=== PATIENT | male | born 1955 | race Caucasian/White ===

== ENCOUNTER 2016-08-07 08:12 | Day surgery (SDC) | payer BC ==
[2016-08-04 15:56] VITALS: BMI 28.6
[~2016-08-07 08:12] MED LIST: LACTATED RINGERS 1,000 ML IV SCH
[2016-08-07 08:33] VITALS: TEMP 98.2
[2016-08-07] MEDS ORDERED: LIDOCAINE 1% 20 ML VIAL (10MG/ML) FOR IV START INTRADERMA ONE (08:44)
[2016-08-07] MEDS ORDERED: MIDAZOLAM 2 MG/2 ML VIAL ONE (08:58)
[2016-08-07] MEDS ORDERED: PROPOFOL 10 MG/ML 20 ML VIAL IV ONE (08:58)
[2016-08-07] MEDS ORDERED: fentaNYL (PF) 50 MCG/ML 2 ML AMP ONE (08:58)
[2016-08-07] MEDS ORDERED: IV FLUID CONTINUATION 650 ML IV ONE (09:21)
--- NOTE | 2016-08-07 09:22 | P.PCN ---
Date of Procedure: 08/07/16 Procedure(s) Performed: BRIEF HISTORY: Patient is a 60-year-old pleasant white male, scheduled for an elective colonoscopy as a part of screening for colon neoplasia. PROCEDURE PERFORMED: Colonoscopy with snare polypectomy. PREOPERATIVE DIAGNOSIS: Screening for colon cancer. IV sedation per Anesthesia. PROCEDURE: After informed consent was obtained, the patient, was brought into the endoscopy unit. IV conscious sedation was administered by Anesthesia under continuous monitoring. Initially the Olympus CF-160 flexible video colonoscope was then inserted in the rectum, gradually advanced into the cecum without any difficulty. Careful examination was performed as the scope was gradually being withdrawn. Ileocecal valve and the appendiceal orifice were visualized and appeared normal. Prep was excellent. In the base of the cecum there was a 1.5 cm broad-based polyp removed by snare polypectomy. On the ileocecal valve there was a 1 segment of polyp removed by snare polypectomy. Mucosa of the cecum, appeared normal. In the ascending colon there were 5 polyps measuring between 5 mm to 1 cm in size all of which were removed by snare polypectomy. The rest of the ascending colon, transverse colon, appeared normal. In the descending colon there was a 1 cm polyp removed by snare polypectomy in the sigmoid colon there was a 1 cm polyp removed by snare polypectomy and in the rectum there were 5 mm 2 polyps removed by snare polypectomy. Rest of the descending colon, sigmoid colon, and rectum appeared normal. Retroflexion was performed in the rectum and no lesions were seen. The patient tolerated the procedure well. IMPRESSION: 1.5 and admitted broad-based cecal polyp status post polypectomy 1 cm ileocecal valve polyp serous post-polypectomy 5 polyps in the ascending colon measuring between 5 mm to 1 m incisors post- polypectomy 1 cm in the setting colon polyp status post polypectomy 1 cm sigmoid colon polyp serous was snare polypectomy 5 mm 2 rectal polyps status post polypectomy RECOMMENDATIONS: Findings of this examination were discussed with the patient as well as his family. He was advised to follow with the biopsy results. If the biopsy shows a tubular adenoma he can have a repeat colonoscopy in 3 years.
[2016-08-07 10:02] VITALS: BP 114/78; PULSE 74; RESP 18
== END 2016-08-07 09:58 | disposition home or self-care (01) ==
LOC: ORWHC2ENDO 08:12
PROVIDERS: ATTEND Internal Medicine Gastroenterology
DX: Z12.11 Encounter for screening for malignant neoplasm of colon (principal); D12.2 Benign neoplasm of ascending colon; D12.0 Benign neoplasm of cecum; D12.4 Benign neoplasm of descending colon; D12.5 Benign neoplasm of sigmoid colon; K62.1 Rectal polyp; I25.10 Atherosclerotic heart disease of native coronary artery without angina pectoris; Z95.5 Presence of coronary angioplasty implant and graft; I25.2 Old myocardial infarction; Z79.82 Long term (current) use of aspirin; Z79.899 Other long term (current) drug therapy; Z87.891 Personal history of nicotine dependence
CPT/HCPCS: 88305; 45385; J2250; J3010; J2704

== ENCOUNTER → 2018-02-02 | Outpatient (CLI) | payer BC ==
--- NOTE | 2018-02-02 10:11 | CTL ---
EXAMINATION TYPE: CT Low Dose Lung DATE OF EXAM ORDERED: 02/02/2018 COMPARISON: None HISTORY: . Low Dose CT Lung Screening CT DLP: [address] CTDI: 1.53 mGy IV CONTRAST USED: None. SCREENING VISIT: First visit COMPARISON: None. TECHNIQUE: Low dose computed tomography scan was performed through the chest at 1 millimeter thick se ctions and reconstructed images in the coronal plane at [address] DIAGNOSTIC QUALITY: Satisfactory FINDINGS: LUNG NODULES: Not presentLeft lung: no nodules identified.Right lung: no nodules identified. LUNGS: COPD: Severity: None Fibrosis: Severity:None Lymph nodes: None Other findings: None RIGHT PLEURAL SPACE: Effusion: None Calcification: None Thickening: None Pneumothorax: None LEFT PLEURAL SPACE: Effusion: None Calcification: None Thickening: None Pneumothorax: None HEART: Heart Size: Mildly enlarged Coronary calcification: Mild Pericardial effusion: None OTHER FINDINGS: Upper abdomen: No significant abnormality Bony thorax: Degenerative changes Supraclavicular region: No significant abnormalityOther: No significant abnormalityI IMPRESSION: 1. No distinct nodule appreciated. FOLLOW UP CT CHEST RECOMMENDATION: Follow-up screening in one year CT LUNG RAD: Negative LUNG RAD CATEGORY
== END | disposition home or self-care (01) ==
LOC: RADCTMAIN 09:18
PROVIDERS: ATTEND Internal Medicine
DX: Z12.2 Encounter for screening for malignant neoplasm of respiratory organs (principal); F17.200 Nicotine dependence, unspecified, uncomplicated

== ENCOUNTER 2020-11-07 11:30 | Emergency (ER) | payer BC, MEDICARE ==
[2020-11-07 11:54] VITALS: BP 141/82; PULSE 65; RESP 20; TEMP 98
[2020-11-07] MEDS ORDERED: KETOROLAC 15 MG/ML 1 ML VIAL IVP STA (12:27)
[2020-11-07] MEDS ORDERED: ONDANSETRON 4 MG/2 ML VIAL IVP STA (12:28)
--- NOTE | 2020-11-07 12:31 | ED ---
Abdominal Pain HPI - General Chief Complaint: Abdominal Pain Stated Complaint: Kidney Stones Time Seen by Provider: 11/07/20 12:19 Source: patient Mode of arrival: ambulatory Limitations: no limitations - History of Present Illness Initial Comments: This is a 65-year-old male with a history of [place] about 7 years ago also history kidney stones who states he had the onset 4 days ago of right-sided flank pain and he better not moving states normally he has a kidney stone to pass her right away within 1 or 2 days has not moved at all. Nausea decreased oral intake and dark urine is reported. The pain he states is 15/10 in severity complaints at this time no fevers MD Complaint: flank pain - Related Data Home Medications Medication Instructions Recorded Confirmed Aspirin EC [Ecotrin] 325 mg PO DAILY 07/29/15 11/07/20 Nitroglycerin Sl Tabs [Nitrostat] 0.4 mg SUBLINGUAL Q5M PRN 07/29/15 11/07/20 Atorvastatin [Lipitor] 40 mg PO DAILY 08/04/16 11/07/20 Acetaminophen Tab [Tylenol Tab] 1,000 mg PO Q6HR PRN 11/07/20 11/07/20 Previous Rx's Medication Instructions Recorded Ketorolac [Toradol] 10 mg PO Q6HR #20 tab 11/07/20 Tamsulosin HCl [Flomax] 0.4 mg PO DAILY #7 capsule 11/07/20 Allergies Allergy/AdvReac Type Severity Reaction Status Date / Time marijuana Allergy Anaphylaxis Verified 11/07/20 13:25 wool Allergy Rash/Hives Verified 11/07/20 13:25 Review of Systems ROS Statement: Those systems with pertinent positive or pertinent negative responses have been documented in the HPI. ROS Other: All systems not noted in ROS Statement are negative. Past Medical History Past Medical History: Chest Pain / Angina, GERD/Reflux, Hyperlipidemia, Myocardial Infarction ([place]), Osteoarthritis ([place]) Additional Past Medical History / Comment(s): LT WRIST FX CHILD, 7 RIB FX AGE 26 Last Myocardial Infarction Date:: 2010 History of Any Multi-Drug Resistant Organisms: None Reported Past Surgical History: Heart Catheterization With Stent, Hernia Repair Additional Past Surgical History / Comment(s): DONNELL INGUINAL HERNIA REPAIR Past Anesthesia/Blood Transfusion Reactions: No Reported Reaction Date of Last Stent Placement:: 2010 Past Psychological History: Depression Smoking Status: Never smoker Past Alcohol Use History: Occasional Past Drug Use History: None Reported - Past Family History Mother Family Medical History: No Reported History Additional Family Medical History / Comment(s): MOM IS HEALTHY, HAD 10 KIDS.STILL WORKS AT [employer] AT AGE 82 Father Family Medical History: Myocardial Infarction ([place]) Additional Family Medical History / Comment(s): HEAVY SMOKER/DRINKER General Exam - General Exam Comments Initial Comments: This is a well-developed well-nourished awake alert oriented 3 male Limitations: no limitations General appearance: alert, anxious, in distress Head exam: Present: atraumatic, normocephalic, normal inspection Eye exam: Present: normal appearance, PERRL, EOMI. Absent: scleral icterus, c onjunctival injection, periorbital swelling ENT exam: Present: normal exam, mucous membranes moist Neck exam: Present: normal inspection. Absent: tenderness, meningismus, lymphadenopathy Respiratory exam: Present: normal lung sounds bilaterally. Absent: respiratory distress, wheezes, rales, rhonchi, stridor Cardiovascular Exam: Present: regular rate, normal rhythm, normal heart sounds. Absent: systolic murmur, diastolic murmur, rubs, gallop, clicks GI/Abdominal exam: Present: soft, tenderness (Mild tenderness palpation of the right side mid abdomen), normal bowel sounds. Absent: distended, guarding, rebound, rigid Rectal exam: Present: deferred ( no guarding rebound masses or bruits) Extremities exam: Present: normal inspection, full ROM, normal capillary refill. Absent: tenderness, pedal edema, joint swelling, calf tenderness Back exam: Present: normal inspection. Absent: CVA tenderness (R), CVA tenderness (L) Neurological exam: Present: alert, oriented X3, CN II-XII intact Psychiatric exam: Present: normal affect, normal mood Skin exam: Present: warm, dry, intact, normal color. Absent: rash Course Vital Signs 11/07/20 11:51 Temperature 98.0 F Pulse Rate 65 Respiratory 20 Rate Blood Pressure 141/82 O2 Sat by Pulse 98 Oximetry Medical Decision Making - Medical Decision Making Patient did get complete pain relief from the Toradol was given. He feels much improved we a long discussion regarding the findings he is currently in satisfactory condition for discharge we did discuss kidney function fluids he'll be discharged with appropriate pain medication. He is a follow-up with his doctor return if any problems he has previously passed much larger stones. - Lab Data Result diagrams: 11/07/20 12:36 11/07/20 12:36 Lab Results 11/07/20 11/07/20 11/07/20 Range/Units 12:36 12:36 12:36 WBC 11.5 H (3.8-10.6) k/uL RBC 4.93 (4.30-5.90) m/uL Hgb 15.2 (13.0-17.5) gm/dL Hct 46.2 (39.0-53.0) % MCV 93.7 (80.0-100.0) fL MCH 30.7 (25.0-35.0) pg MCHC 32.8 (31.0-37.0) g/dL RDW 14.0 (11.5-15.5) % Plt Count 198 (150-450) k/uL MPV 7.5 Neutrophils % 82 % Lymphocytes % 8 % Monocytes % 7 % Eosinophils % 0 % Basophils % 0 % Neutrophils # 9.4 H (1.3-7.7) k/uL Lymphocytes # 1.0 (1.0-4.8) k/uL Monocytes # 0.8 (0-1.0) k/uL Eosinophils # 0.0 (0-0.7) k/uL Basophils # 0.0 (0-0.2) k/uL Sodium 135 L (137-145) mmol/L Potassium 4.1 (3.5-5.1) mmol/L Chloride 101 (98-107) mmol/L Carbon Dioxide 26 (22-30) mmol/L Anion Gap 8 mmol/L BUN 23 H (9-20) mg/dL Creatinine 2.04 H (0.66-1.25) mg/dL Est GFR (CKD-EPI)AfAm 38 (>60 ml/min/1.73 sqM) Est GFR (CKD-EPI)NonAf 33 (>60 ml/min/1.73 sqM) Glucose 102 H (74-99) mg/dL Calcium 9.2 (8.4-10.2) mg/dL Total Bilirubin 0.7 (0.2-1.3) mg/dL AST 19 (17-59) U/L ALT 14 (4-49) U/L Alkaline Phosphatase 80 (38-126) U/L Creatine Kinase 158 (55-170) U/L Troponin I <0.012 (0.000-0.034) ng/mL Total Protein 6.7 (6.3-8.2) g/dL Albumin 4.1 (3.5-5.0) g/dL Amylase 73 (30-110) U/L Lipase 35 (23-300) U/L - Radiology Data Radiology results: report reviewed (Imaging reviewed evidence of a 3 mm stone at the UVJ on the right), image reviewed Disposition Clinical Impression: Kidney stone on right side, Renal colic on right side Disposition: ADMITTED IP TO THIS [facility] Condition: Good Instructions (If sedation given, give patient instructions): Kidney Stones (ED), Flank Pain (ED), How to Strain Your Urine (ED), Renal Colic (ED) Prescriptions: Tamsulosin HCl [Flomax] 0.4 mg PO DAILY #7 capsule Ketorolac [Toradol] 10 mg PO Q6HR #20 tab Is patient prescribed a controlled substance at d/c from ED?: No Referrals: Carmen Beaver MD [Primary Care Provider] - 1-2 days
[2020-11-07 13:08] LABS: Basophils % (A) 0 %; Eosinophils % (A) 0 %; HCT 46.2 % (39.0-53.0); HGB 15.2 gm/dL (13.0-17.5); Lymphocytes % (A) 8 %; MCH 30.7 pg (25.0-35.0); MCHC 32.8 g/dL (31.0-37.0); MCV 93.7 fL (80.0-100.0); Mean Platelet Volume 7.5; Monocytes # (A) 0.8 k/uL (0-1.0); Monocytes % (A) 7 %; Neutrophils # (A) 9.4 k/uL (1.3-7.7); Neutrophils % (A) 82 %; Platelet Count 198 k/uL (150-450); RBC 4.93 m/uL (4.30-5.90); WBC 11.5 k/uL (3.8-10.6)
[2020-11-07 13:18] LABS: Albumin 4.1 g/dL (3.5-5.0); Calcium 9.2 mg/dL (8.4-10.2); Potassium 4.1 mmol/L (3.5-5.1); Total Bilirubin 0.7 mg/dL (0.2-1.3); Total Protein 6.7 g/dL (6.3-8.2)
--- NOTE | 2020-11-07 13:38 | XR ---
EXAMINATION TYPE: XR KUB DATE OF EXAM: 11/07/2020 COMPARISON: None INDICATION: Abdomen pain right-sided renal stones TECHNIQUE: Single view abdomen upright view FINDINGS: There is a normal bowel gas pattern. Psoas margins are normal. No organomegaly is present. No suspicious renal calcifications identified. A pair of 0.3 cm calcifications are adjacent to the urinary bladder could be distal right ureteral st ones IMPRESSION: 1. Possible distal right ureteral stones measuring 0.3 cm. 2. Otherwise nonspecific abdomen.
== END 2020-11-07 14:53 | disposition other institution (70) ==
LOC: EC 11:30
DX: N20.0 Calculus of kidney (principal); E78.5 Hyperlipidemia, unspecified; K21.9 Gastro-esophageal reflux disease without esophagitis; I25.2 Old myocardial infarction; F32.9 Major depressive disorder, single episode, unspecified; M19.90 Unspecified osteoarthritis, unspecified site; Z79.1 Long term (current) use of non-steroidal anti-inflammatories (NSAID); Z79.82 Long term (current) use of aspirin
CPT/HCPCS: 80053; 82150; 82550; 83690; 84484; 85025; 74018; 99285; 96374; 96375; J2405; J1885

== ENCOUNTER 2021-10-26 20:44 | Inpatient (IN) | payer MEDICARE ==
[2021-10-26] MEDS ORDERED: KETOROLAC 15 MG/ML 1 ML VIAL IVP STA (21:50)
[2021-10-26] MEDS ORDERED: SODIUM CHLORIDE 0.9% 1,000 ML IV STA ×2 (21:50)
[2021-10-26] MEDS ORDERED: HYDROmorphone 1 MG/ML 1 ML SYRINGE IVP STA (21:50)
[2021-10-26] MEDS ORDERED: SODIUM CHLORIDE 0.9% 500 ML 500 ML IV STA (21:50)
[2021-10-26] MEDS ORDERED: ONDANSETRON 4 MG/2 ML VIAL IVP STA (21:50)
[2021-10-26] MEDS ORDERED: TAMSULOSIN 0.4 MG CAP.ER.24H PO STA (21:51)
[2021-10-26 22:05] LABS: Basophils # (A) 0.1 k/uL (0-0.2); Basophils % (A) 1 %; Eosinophils % (A) 0 %; HCT 50.6 % (39.0-53.0); HGB 16.3 gm/dL (13.0-17.5); Lymphocytes # (A) 1.2 k/uL (1.0-4.8); Lymphocytes % (A) 13 %; MCHC 32.3 g/dL (31.0-37.0); MCV 96.2 fL (80.0-100.0); Mean Platelet Volume 7.3; Monocytes # (A) 0.7 k/uL (0-1.0); Monocytes % (A) 7 %; Neutrophils # (A) 6.9 k/uL (1.3-7.7); Neutrophils % (A) 76 %; Platelet Count 213 k/uL (150-450); RBC 5.26 m/uL (4.30-5.90); RDW 13.9 % (11.5-15.5)
--- NOTE | 2021-10-26 22:10 | ED ---
Recheck HPI - General Chief Complaint: Abdominal Pain Stated Complaint: Abd pain,Fever Time Seen by Provider: 10/26/21 21:39 Source: patient, RN notes reviewed, old records reviewed Mode of arrival: ambulatory Limitations: no limitations - History of Present Illness Initial Comments: This is a 66-year-old male and to the emergency department for evaluation. This is a reevaluation today, patient was seen at prior facility for kidney stone. History of kidney stones in the past. No prior evaluation by urologist. Patient has severe and significant pain with nausea and vomiting. No fevers no dysuria. MD Complaint: other (Recheck for kidney stones pain and nausea vomiting) -: hour(s) Returns Today for: persistent/worsening pain related to initial visit Symptoms Since Prior Visit: worsening pain (Nausea vomiting) Associated Symptoms: nausea, abdominal pain (Flank pain) Treatments Prior to Arrival: Given Pain Meds on - Related Data Home Medications Medication Instructions Recorded Confirmed Aspirin EC [Ecotrin] 325 mg PO DAILY 07/29/15 11/07/20 Nitroglycerin Sl Tabs [Nitrostat] 0.4 mg SUBLINGUAL Q5M PRN 07/29/15 11/07/20 Atorvastatin [Lipitor] 40 mg PO DAILY 08/04/16 11/07/20 Acetaminophen Tab [Tylenol Tab] 1,000 mg PO Q6HR PRN 11/07/20 11/07/20 Previous Rx's Medication Instructions Recorded Ketorolac [Toradol] 10 mg PO Q6HR #20 tab 11/07/20 Tamsulosin HCl [Flomax] 0.4 mg PO DAILY #7 capsule 11/07/20 Allergies Allergy/AdvReac Type Severity Reaction Status Date / Time marijuana Allergy Anaphylaxis Verified 10/26/21 21:36 wool Allergy Rash/Hives Verified 10/26/21 21:36 Review of Systems ROS Statement: Those systems with pertinent positive or pertinent negative responses have been documented in the HPI. ROS Other: All systems not noted in ROS Statement are negative. Past Medical History Past Medical History: Chest Pain / Angina, GERD/Reflux, Hyperlipidemia, Myocardial Infarction ([place]), Osteoarthritis ([place]) Additional Past Medical History / Comment(s): LT WRIST FX CHILD, 7 RIB FX AGE 26 Last Myocardial Infarction Date:: 2010 History of Any Multi-Drug Resistant Organisms: None Reported Past Surgical History: Heart Catheterization With Stent, Hernia Repair Additional Past Surgical History / Comment(s): DONNELL INGUINAL HERNIA REPAIR Past Anesthesia/Blood Transfusion Reactions: No Reported Reaction Date of Last Stent Placement:: 2010 Past Psychological History: Depression Smoking Status: Never smoker Past Alcohol Use History: Occasional Past Drug Use History: None Reported - Past Family History Mother Family Medical History: No Reported History Additional Family Medical History / Comment(s): MOM IS HEALTHY, HAD 10 KIDS.STILL WORKS AT [employer] AT AGE 82 Father Family Medical History: Myocardial Infarction ([place]) Additional Family Medical History / Comment(s): HEAVY SMOKER/DRINKER General Exam General appearance: alert, in no apparent distress, anxious Head exam: Present: atraumatic, normocephalic, normal inspection Eye exam: Present: normal appearance, PERRL, EOMI. Absent: scleral icterus, conjunctival injection, periorbital swelling ENT exam: Present: normal exam, mucous membranes moist Neck exam: Present: normal inspection. Absent: tenderness, meningismus, lymphadenopathy Respiratory exam: Present: normal lung sounds bilaterally. Absent: respiratory distress, wheezes, rales, rhonchi, stridor Cardiovascular Exam: Present: regular rate, normal rhythm, normal heart sounds. Absent: systolic murmur, diastolic murmur, rubs, gallop, clicks GI/Abdominal exam: Present: soft, normal bowel sounds. Absent: distended, tenderness, guarding, rebound, rigid Extremities exam: Present: normal inspection, full ROM, normal capillary refill. Absent: tenderness, pedal edema, joint swelling, calf tenderness Back exam: Present: normal inspection Neurological exam: Present: alert, oriented X3, CN II-XII intact Psychiatric exam: Present: normal affect, normal mood Skin exam: Present: warm, dry, intact, normal color. Absent: rash Course Vital Signs 10/26/21 21:29 Temperature 99 F Pulse Rate 82 Respiratory 17 Rate Blood Pressure 148/92 O2 Sat by Pulse 95 Oximetry - Reevaluation(s) Reevaluation #1: 10/26/21 22:48 Medical record is reviewed Reevaluation #2: 10/26/21 22:48 Patient does have known kidney stone 5.3 mm right UVJ Reevaluation #3: 10/26/21 22:48 Patient has adequate pain control currently - Consultations Consultation #1: Spoke with urology will see patient this morning Consultation #2: Spoke with [facility] we'll admit this patient Medical Decision Making - Medical Decision Making 66 male to the ER for evaluation positive kidney stone right UVJ. Patient be admitted for pain control and urology to see - Lab Data Result diagrams: 10/26/21 21:54 10/26/21 21:54 Lab Results 10/26/21 10/26/21 Range/Units 21:54 21:54 WBC 9.0 (3.8-10.6) k/uL RBC 5.26 (4.30-5.90) m/uL Hgb 16.3 (13.0-17.5) gm/dL Hct 50.6 (39.0-53.0) % MCV 96.2 (80.0-100.0) fL MCH 31.0 (25.0-35.0) pg MCHC 32.3 (31.0-37.0) g/dL RDW 13.9 (11.5-15.5) % Plt Count 213 (150-450) k/uL MPV 7.3 Neutrophils % 76 % Lymphocytes % 13 % Monocytes % 7 % Eosinophils % 0 % Basophils % 1 % Neutrophils # 6.9 (1.3-7.7) k/uL Lymphocytes # 1.2 (1.0-4.8) k/uL Monocytes # 0.7 (0-1.0) k/uL Eosinophils # 0.0 (0-0.7) k/uL Basophils # 0.1 (0-0.2) k/uL Sodium 140 (137-145) mmol/L Potassium 4.5 (3.5-5.1) mmol/L Chloride 104 (98-107) mmol/L Carbon Dioxide 26 (22-30) mmol/L Anion Gap 10 mmol/L BUN 27 H (9-20) mg/dL Creatinine 1.91 H (0.66-1.25) mg/dL Est GFR (CKD-EPI)AfAm 41 (>60 ml/min/1.73 sqM) Est GFR (CKD-EPI)NonAf 35 (>60 ml/min/1.73 sqM) Glucose 114 H (74-99) mg/dL Calcium 9.3 (8.4-10.2) mg/dL Total Bilirubin 0.8 (0.2-1.3) mg/dL AST 25 (17-59) U/L ALT 21 (4-49) U/L Alkaline Phosphatase 86 (38-126) U/L Total Protein 7.7 (6.3-8.2) g/dL Albumin 4.7 (3.5-5.0) g/dL Amylase 100 (30-110) U/L Lipase 77 (23-300) U/L - Radiology Data Radiology results: report reviewed (X-ray KUB negative for acute disease), image reviewed Disposition Clinical Impression: Right ureteral calculus, Nausea & vomiting, Intractable pain, Failure of outpatient treatment Disposition: ADMITTED IP TO THIS [facility] Condition: Good Is patient prescribed a controlled substance at d/c from ED?: No Referrals: Carmen Beaver MD [Primary Care Provider] - 1-2 days
[2021-10-26 22:20] LABS: Albumin 4.7 g/dL (3.5-5.0); Calcium 9.3 mg/dL (8.4-10.2); Potassium 4.5 mmol/L (3.5-5.1); Total Bilirubin 0.8 mg/dL (0.2-1.3); Total Protein 7.7 g/dL (6.3-8.2)
--- NOTE | 2021-10-26 22:28 | XR ---
EXAMINATION TYPE: XR KUB DATE OF EXAM: 10/26/2021 COMPARISON: 11/07/2020 HISTORY: Abdominal pain TECHNIQUE: 2 views upright FINDINGS: There is no sign of intestinal obstruction or pneumoperitoneum. Fecal pattern is normal. No evidence of a mass. Lung bases are clear. No calcification seen over the kidneys. IMPRESSION: Nonacute abdomen. No change compared to old exam.
[2021-10-26] MEDS ORDERED: LORazepam 2 MG/ML INJ IV PRN (22:49)
[2021-10-26] MEDS ORDERED: KETOROLAC 15 MG/ML 1 ML VIAL IVP PRN (22:49)
[2021-10-26] MEDS ORDERED: HYDROmorphone 1 MG/ML 1 ML SYRINGE IVP PRN (22:49)
[2021-10-26] MEDS ORDERED: ONDANSETRON 4 MG/2 ML VIAL IVP PRN (22:49)
[2021-10-26] MEDS ORDERED: NALOXONE 0.4 MG/ML 1 ML VIAL IV PRN (22:49)
[2021-10-27] MEDS: SODIUM CHLORIDE 0.9% 1,000 ML IV SCH ×2 (00:04→08:11)
[2021-10-27 02:17] LABS: Appearance,Urine Clear (Clear); Bilirubin,Urine Negative (Negative); Blood,Urine Moderate (Negative); Color,Urine Yellow; Glucose,Urine (UA) Negative (Negative); Hyaline Casts,Urine 14 /lpf (0-2); Ketones,Urine Trace (Negative); Leukocyte Esterase,Urine Negative (Negative); Mucus,Urine Moderate /hpf; Nitrite,Urine Negative (Negative); PH, Urine 5.5 (5.0-8.0); Protein,Urine 1+ (Negative); RBC,Urine 24 /hpf (0-5); Urobilinogen,Urine <2.0 mg/dL (<2.0); WBC,Urine 2 /hpf (0-5)
[2021-10-27 06:34] LABS: Basophils % (A) 0 %; Eosinophils % (A) 1 %; HGB 14.8 gm/dL (13.0-17.5); Lymphocytes # (A) 1.6 k/uL (1.0-4.8); Lymphocytes % (A) 17 %; MCH 31.3 pg (25.0-35.0); MCHC 32.2 g/dL (31.0-37.0); MCV 97.2 fL (80.0-100.0); Mean Platelet Volume 7.4; Monocytes # (A) 0.6 k/uL (0-1.0); Monocytes % (A) 7 %; Neutrophils # (A) 6.7 k/uL (1.3-7.7); Neutrophils % (A) 72 %; Platelet Count 190 k/uL (150-450); RBC 4.74 m/uL (4.30-5.90); WBC 9.3 k/uL (3.8-10.6)
[2021-10-27 07:08] LABS: Albumin 3.8 g/dL (3.5-5.0); Calcium 8.3 mg/dL (8.4-10.2); Potassium 4.3 mmol/L (3.5-5.1); Total Bilirubin 0.8 mg/dL (0.2-1.3); Total Protein 6.3 g/dL (6.3-8.2)
[2021-10-27 08:26] VITALS: BP 115/62; PULSE 56; RESP 16; TEMP 98.2
--- NOTE | 2021-10-27 11:05 | P.HPIM ---
History of Present Illness H&P Date: 10/27/21 Chief Complaint: Abdominal pain Patient is a 66-year-old male with a known history of hyperlipidemia, history of [place], coronary artery disease history of stent placement, depression and occasional smoking presents to ER with the complaints of abdominal pain. Right- sided abdominal pain/flank pain. Patient does have history of renal stones previously. Came to ER due to severe pain and associated nausea and vomiting. Patient had scan done at the other hospital facility. No fever no chills. Denied any dysuria or hematuria. No compressive chest pain or shortness of breath. Denied any recent illnesses. No cough or sputum production. KUB x-ray showed nonacute abdomen. No change compared to old exam. Nonobstructive bowel gas pattern. Review of Systems Constitutional: Patient denies any fever or chills . No generalized weakness or weight loss. Abdomen: Patient does have right-sided abdominal pain associated with nausea and vomiting. No diarrhea.. Cardiovascular: Patient denies any chest pain or short of breath no palpitations. Respiratory: patient denied any cough is from production. No shortness of breath Neurologic: Patient denied any numbness or tingling headache. Musculoskeletal: Patient denies any complaints of joint swelling or deformity. Skin: Negative Psychiatric: Negative Endocrine: No heat or cold intolerance. No recent weight gain. Genitourinary: No dysuria or hematuria. All other 14 point ROS negative except the above Past Medical History Past Medical History: Chest Pain / Angina, GERD/Reflux, Hyperlipidemia, Myocardial Infarction ([place]), Osteoarthritis ([place]) Additional Past Medical History / Comment(s): LT WRIST FX CHILD, 7 RIB FX AGE 26 Last Myocardial Infarction Date:: 2010 History of Any Multi-Drug Resistant Organisms: None Reported Past Surgical History: Heart Catheterization With Stent, Hernia Repair Additional Past Surgical History / Comment(s): DONNELL INGUINAL HERNIA REPAIR Past Anesthesia/Blood Transfusion Reactions: No Reported Reaction Date of Last Stent Placement:: 2010 Past Psychological History: Depression Additional Psychological History / Comment(s): MILD DEPRESSION"[place]UES" Smoking Status: Never smoker Past Alcohol Use History: Occasional Additional Past Alcohol Use History / Comment(s): SMOKED OFF AND ON 40 YEARS, QUIT 4 YEARS AGO, DRINK 5-6 BEER PER MONTH Past Drug Use History: None Reported - Past Family History Mother Family Medical History: No Reported History Additional Family Medical History / Comment(s): MOM IS HEALTHY, HAD 10 KIDS.STILL WORKS AT [employer] AT AGE 82 Father Family Medical History: Myocardial Infarction ([place]) Additional Family Medical History / Comment(s): HEAVY SMOKER/DRINKER Medications and Allergies Home Medications Medication Instructions Recorded Confirmed Type Aspirin EC [Ecotrin] 325 mg PO DAILY 07/29/15 10/27/21 History Nitroglycerin Sl Tabs [Nitrostat] 0.4 mg SUBLINGUAL Q5M PRN 07/29/15 10/27/21 History Atorvastatin [Lipitor] 40 mg PO DAILY 08/04/16 10/27/21 History HYDROcodone/APAP 5-325MG [[place] 1 - 2 tab PO Q4HR PRN #6 tab 10/27/21 Rx 5-325] Tamsulosin [Flomax] 0.4 mg PO DAILY #30 cap 10/27/21 Rx Allergies Allergy/AdvReac Type Severity Reaction Status Date / Time marijuana Allergy Anaphylaxis Verified 10/27/21 07:50 Penicillins AdvReac Rash/Hives Verified 10/27/21 07:50 wool AdvReac Rash/Hives Verified 10/27/21 07:50 Physical Exam Vitals: Vital Signs Temp Pulse Pulse Resp BP BP Pulse Ox 10/27/21 08:00 98.2 F 56 L 16 115/62 96 10/26/21 23:45 98.8 F 87 17 150/89 97 10/26/21 21:29 99 F 82 17 148/92 95 Intake and Output 10/26/21 10/27/21 10/27/21 22:59 06:59 14:59 Output Total 170 Balance -170 Output: Urine 170 Other: Weight 102.512 kg 102.512 kg PHYSICAL EXAMINATION: Patient is lying in the bed comfortably, no acute distress, awake alert and oriented.. HEENT: Normocephalic. Neck is supple. Pupils reactive. Nostrils clear. Oral cavity is moist. Neck reveals no JVD, carotid bruits, or thyromegaly. CHEST EXAMINATION: Trachea is central. Symmetrical expansion. Lung jacobs clear to auscultation and percussion. CARDIAC: Normal S1, S2 with no gallops. No murmurs ABDOMEN: Soft. Bowel sounds normal. No organomegaly. No abdominal bruits. Extremities: reveal no edema. No clubbing or cyanosis Neurologically awake, alert, oriented x3 with well-coordinated movements. No focal deficits noted Skin: No rash or skin lesions. Psychiatric: Coperative. Nonsuicidal Musculoskeletal: No joint swelling or deformity. Normal range of motion. Results CBC & Chem 7: 10/27/21 06:10 10/27/21 06:10 Labs: Abnormal Lab Results - Last 24 Hours (Table) 10/26/21 10/27/21 10/27/21 Range/Units 21:54 01:50 06:10 Chloride 110 H (98-107) mmol/L Carbon Dioxide 20 L (22-30) mmol/L BUN 27 H 28 H (9-20) mg/dL Creatinine 1.91 H 1.76 H (0.66-1.25) mg/dL Glucose 114 H (74-99) mg/dL Calcium 8.3 L (8.4-10.2) mg/dL Ur Specific [place] 1.040 H (1.001-1.035) Urine Protein 1+ H (Negative) Urine Ketones Trace H (Negative) Urine Blood Moderate H (Negative) Urine RBC 24 H (0-5) /hpf Hyaline Casts 14 H (0-2) /lpf Urine Mucus Moderate H (None) /hpf Thrombosis Risk Factor Assmnt - DVT/VTE Prophylaxis DVT/VTE Prophylaxis: Pharmacologic Prophylaxis ordered - Choose All That Apply Any of the Below Risk Factors Present?: Yes Each Factor Represents 1 point: Obesity (BMI >25) Other Risk Factors: Yes Each Risk Factor Represents 2 Points: Age 61-74 years Thrombosis Risk Factor Assessment Total Risk Factor Score: 3 Thrombosis Risk Factor Assessment Level: Moderate Risk Assessment and Plan Assessment: Right ureteral calculus Abdominal pain and intractable nausea vomiting secondary to above. coronary artery disease with history of stent placement. Hyperlipidemia GERD Osteoarthritis Depression DVT prophylaxis with heparin subcu Plan: Patient recorded on pain management, IV hydration and urology was consulted. Continue the home medications and aspirin on hold. Follow up closely. Time with Patient: Greater than 30
--- NOTE | 2021-10-27 14:02 | P.GSCN ---
History of Present Illness Consult date: 10/27/21 Reason for Consult: The patient is a 66-year-old white male with a history of urolithiasis. Yesterday, he began to experience urinary frequency and urgency, associated with dizziness and sweating. He denied flank pain. He was evaluated at a hospital in [place], [place]. CT scan revealed moderate right hydronephrosis due to a 5.5 mm calculus at the right ureterovesical junction. Requesting physician: Yifan Lynne Review of Systems - Constitutional Reports chills, Denies fever - Genitourinary Reports kidney stones, Reports urinary frequency, Denies flank pain - Neurological Reports vertigo Past Medical History Past Medical History: Chest Pain / Angina, GERD/Reflux, Hyperlipidemia, Myocardi al Infarction ([place]), Osteoarthritis (OA) Additional Past Medical History / Comment(s): LT WRIST FX CHILD, 7 RIB FX AGE 26 Last Myocardial Infarction Date:: 2010 History of Any Multi-Drug Resistant Organisms: None Reported Past Surgical History: Heart Catheterization With Stent, Hernia Repair Additional Past Surgical History / Comment(s): DONNELL INGUINAL HERNIA REPAIR Past Anesthesia/Blood Transfusion Reactions: No Reported Reaction Date of Last Stent Placement:: 2010 Past Psychological History: Depression Additional Psychological History / Comment(s): MILD DEPRESSION"WINTER BLUE" Smoking Status: Never smoker Past Alcohol Use History: Occasional Additional Past Alcohol Use History / Comment(s): SMOKED OFF AND ON 40 YEARS, QUIT 4 YEARS AGO, DRINK 5-6 BEER PER MONTH Past Drug Use History: None Reported - Past Family History Mother Family Medical History: No Reported History Additional Family Medical History / Comment(s): MOM IS HEALTHY, HAD 10 KIDS.STILL WORKS AT [employer] AT AGE 82 Father Family Medical History: Myocardial Infarction ([place]) Additional Family Medical History / Comment(s): HEAVY SMOKER/DRINKER Medications and Allergies Home Medications Medication Instructions Recorded Confirmed Type Aspirin EC [Ecotrin] 325 mg PO DAILY 07/29/15 10/27/21 History Nitroglycerin Sl Tabs [Nitrostat] 0.4 mg SUBLINGUAL Q5M PRN 07/29/15 10/27/21 History Atorvastatin [Lipitor] 40 mg PO DAILY 08/04/16 10/27/21 History HYDROcodone/APAP 5-325MG [[place] 1 - 2 tab PO Q4HR PRN #6 tab 10/27/21 Rx 5-325] Tamsulosin [Flomax] 0.4 mg PO DAILY #30 cap 10/27/21 Rx Allergies Allergy/AdvReac Type Severity Reaction Status Date / Time marijuana Allergy Anaphylaxis Verified 10/27/21 07:50 Penicillins AdvReac Rash/Hives Verified 10/27/21 07:50 wool AdvReac Rash/Hives Verified 10/27/21 07:50 Surgical - Exam Vital Signs Temp Pulse Resp BP Pulse Ox 99 F 82 17 148/92 95 10/26/21 21:29 10/26/21 21:29 10/26/21 21:29 10/26/21 21:29 10/26/21 21:29 - General well developed, well nourished, no distress - Respiratory normal respiratory effort - Abdomen Abdomen: soft, non tender, no guarding, no rigid, no rebound - Psychiatric oriented to time, oriented to person, oriented to place, speech is normal, memory intact Results - Labs 10/27/21 06:10 10/27/21 06:10 Abnormal Lab Results - Last 24 Hours (Table) 10/26/21 10/27/21 Range/Units 21:54 01:50 BUN 27 H (9-20) mg/dL Creatinine 1.91 H (0.66-1.25) mg/dL Glucose 114 H (74-99) mg/dL Ur Specific [place] 1.040 H (1.001-1.035) Urine Protein 1+ H (Negative) Urine Ketones Trace H (Negative) Urine Blood Moderate H (Negative) Urine RBC 24 H (0-5) /hpf Hyaline Casts 14 H (0-2) /lpf Urine Mucus Moderate H (None) /hpf Diabetes panel 10/26/21 Range/Units 21:54 Sodium 140 (137-145) mmol/L Potassium 4.5 (3.5-5.1) mmol/L Chloride 104 (98-107) mmol/L Carbon Dioxide 26 (22-30) mmol/L BUN 27 H (9-20) mg/dL Creatinine 1.91 H (0.66-1.25) mg/dL Glucose 114 H (74-99) mg/dL Calcium 9.3 (8.4-10.2) mg/dL AST 25 (17-59) U/L ALT 21 (4-49) U/L Alkaline Phosphatase 86 (38-126) U/L Total Protein 7.7 (6.3-8.2) g/dL Albumin 4.7 (3.5-5.0) g/dL Calcium panel 10/26/21 Range/Units 21:54 Calcium 9.3 (8.4-10.2) mg/dL Albumin 4.7 (3.5-5.0) g/dL Pituitary panel 10/26/21 Range/Units 21:54 Sodium 140 (137-145) mmol/L Potassium 4.5 (3.5-5.1) mmol/L Chloride 104 (98-107) mmol/L Carbon Dioxide 26 (22-30) mmol/L BUN 27 H (9-20) mg/dL Creatinine 1.91 H (0.66-1.25) mg/dL Glucose 114 H (74-99) mg/dL Calcium 9.3 (8.4-10.2) mg/dL Adrenal panel 10/26/21 Range/Units 21:54 Sodium 140 (137-145) mmol/L Potassium 4.5 (3.5-5.1) mmol/L Chloride 104 (98-107) mmol/L Carbon Dioxide 26 (22-30) mmol/L BUN 27 H (9-20) mg/dL Creatinine 1.91 H (0.66-1.25) mg/dL Glucose 114 H (74-99) mg/dL Calcium 9.3 (8.4-10.2) mg/dL Total Bilirubin 0.8 (0.2-1.3) mg/dL AST 25 (17-59) U/L ALT 21 (4-49) U/L Alkaline Phosphatase 86 (38-126) U/L Total Protein 7.7 (6.3-8.2) g/dL Albumin 4.7 (3.5-5.0) g/dL - Imaging CT scan - abdomen: report reviewed Assessment and Plan (1) Calculus of ureter Status: Acute Code(s): N20.1 - CALCULUS OF URETER SNOMED Code(s): 85471926 (2) Hydronephrosis with renal and ureteral calculous obstruction Status: Acute Code(s): N13.2 - HYDRONEPHROSIS WITH RENAL AND URETERAL CALCULOUS OBSTRUCTION SNOMED Code(s): 076273459 Plan: I explained to Mr. Duncan that the calculus has a better than 90% chance of passing spontaneously. In view of this, and the fact that he is currently comfortable, he has elected not to undergo surgical removal of the calculus. We discussed medical expulsion therapy, and I have prescribed tamsulosin. He has been advised to strain his urine. [place] was also prescribed, to be taken as needed. He will follow up with me in the office in 1 week. If the calculus fails to pass, he will be advised to undergo right ureteroscopy with laser lithotripsy and possible stone basketing. He was advised to contact me in the meantime if he develops intractable symptoms. Incidentally, the calculus is radio opaque and therefore ESWL would also be a viable treatment option. Time with Patient: Greater than 30
[2021-10-28] MEDS ORDERED: ATORVASTATIN 40 MG TAB PO SCH (09:00)
--- NOTE | 2021-11-11 14:34 | P.DS ---
Providers Date of admission: 10/26/21 22:49 Expected date of discharge: 10/27/21 Attending physician: Yifan Lynne Consults: 10/26/21 22:50 Consult Physician Routine Consulting Provider: Elvin Orantes Consult Reason/Comments: stone Do you want consulting provider notified?: Yes Primary care physician: Carmen Beaver Hospital Course: Discharge diagnosis Right ureteral calculus Abdominal pain and intractable nausea vomiting secondary to above. coronary artery disease with history of stent placement. Hyperlipidemia GERD Osteoarthritis Depression DVT prophylaxis with heparin subcu Hospital course Patient is a 66-year-old male with a known history of hyperlipidemia, history of [place], coronary artery disease history of stent placement, depression and occasional smoking presents to ER with the complaints of abdominal pain. Right- sided abdominal pain/flank pain. Patient does have history of renal stones previously. Came to ER due to severe pain and associated nausea and vomiting. Patient had scan done at the other hospital facility. No fever no chills. Denied any dysuria or hematuria. No compressive chest pain or shortness of breath. Denied any recent illnesses. No cough or sputum production. KUB x-ray showed nonacute abdomen. No change compared to old exam. Nonobstructive bowel gas pattern. Patient was continued on pain management and IV hydration. Seen by urology and recommended to start on Flomax. Patient was given a prescription for [place] as sent. Otherwise patient does have good chance of passing the stone spontaneously. Recommend outpatient follow-up for possible cystoscopy as an elective procedure. Otherwise patient denied any complains of pain. Feels comfortable. Would like to be discharged home. Discharge physical examination was done and vitals reviewed. Patient Condition at Discharge: Good Plan - Discharge Summary Discharge Rx Participant: Yes New Discharge Prescriptions: New Tamsulosin [Flomax] 0.4 mg PO DAILY #30 cap HYDROcodone/APAP 5-325MG [[place] 5-325] 1 - 2 tab PO Q4HR PRN #6 tab PRN Reason: Pain Continue Nitroglycerin Sl Tabs [Nitrostat] 0.4 mg SUBLINGUAL Q5M PRN PRN Reason: Chest Pain Aspirin EC [Ecotrin] 325 mg PO DAILY Atorvastatin [Lipitor] 40 mg PO DAILY Discharge Medication List Aspirin EC [Ecotrin] 325 mg PO DAILY 07/29/15 [History] Nitroglycerin Sl Tabs [Nitrostat] 0.4 mg SUBLINGUAL Q5M PRN 07/29/15 [History] Atorvastatin [Lipitor] 40 mg PO DAILY 08/04/16 [History] HYDROcodone/APAP 5-325MG [[place] 5-325] 1 - 2 tab PO Q4HR PRN #6 tab 10/27/21 [Rx] Tamsulosin [Flomax] 0.4 mg PO DAILY #30 cap 10/27/21 [Rx] Follow up Appointment(s)/Referral(s): Dave Leavitt MD [STAFF PHYSICIAN] - 1 Week (office will call with appointment time) Carmen Beaver MD [Primary Care Provider] - 1-2 days (You will need to phone and make appointment. ) Patient Instructions/Handouts: Kidney Stones (DC) Activity/Diet/Wound Care/Special Instructions: Diet as tolerated. Activity as tolerated. Strain urine. Follow up with Dr. Leavitt in 1 week. KUB x-ray to be done prior to that appointment if patient has not passed stone. Discharge Disposition: HOME SELF-CARE
== END 2021-10-27 11:30 | disposition home or self-care (01) | DRG 694 ==
LOC: EC 20:44 → 4SSUR 22:49
PROVIDERS: ADMIT Hospitalist; ATTEND Hospitalist
DX: N13.2 Hydronephrosis with renal and ureteral calculous obstruction (principal); Z79.82 Long term (current) use of aspirin; Z79.899 Other long term (current) drug therapy; M19.90 Unspecified osteoarthritis, unspecified site; K21.9 Gastro-esophageal reflux disease without esophagitis; E78.5 Hyperlipidemia, unspecified; F32.A Depression, unspecified; I25.10 Atherosclerotic heart disease of native coronary artery without angina pectoris; Z95.5 Presence of coronary angioplasty implant and graft; I25.2 Old myocardial infarction
CPT/HCPCS: 36415; 74018; 80053; 81001; 82150; 83690; 85025; 96361; 96374; 96375; 99285

== ENCOUNTER → 2021-12-16 | Outpatient (CLI) | payer MEDICARE ==
--- NOTE | 2021-12-16 11:58 | XR ---
EXAMINATION TYPE: XR KUB DATE OF EXAM: 12/16/2021 11:22 AM INDICATION: Patient age:Male; 66 years old; Reason for study: N201 N132; COMPARISON: Radiograph 10/26/2021. TECHNIQUE: One radiographic view of the abdomen was obtained. FINDINGS: The bowel gas pattern is nonspecific without dilated loops of small or large bowel. There i s no evidence for organomegaly or pneumoperitoneum. The osseous structures are intact. Fecal materi al and gas are demonstrated throughout the colon and rectum. Mild multilevel disc degeneration torres es throughout the spine. Scattered pelvic fullness are present. IMPRESSION: Nonspecific bowel gas pattern without radiographic evidence for acute process.
== END | disposition home or self-care (01) ==
LOC: RADXRMAIN 10:58
PROVIDERS: ATTEND Urology
DX: N20.1 Calculus of ureter (principal)
CPT/HCPCS: 74018

== ENCOUNTER → 2021-12-26 | Outpatient (CLI) | payer MEDICARE ==
--- NOTE | 2021-12-26 16:39 | US ---
EXAMINATION TYPE: US kidneys/renal and bladder DATE OF EXAM: 12/26/2021 COMPARISON: Renal ultrasound 04/29/2011, CT abdomen and pelvis 10/26/2021 CLINICAL HISTORY: N20.1 Calculus of ureter N13.2. EXAM MEASUREMENTS: Right Kidney: 11 x 6.4 x 4.9 cm Left Kidney: 11.1 x 5.3 x 5.7 cm Right Kidney: Cyst seen on the lateral border measuring 1.3 x 1.4 x 1.3 cm . No hydronephrosis or sh adowing calculi. No concerning mass. Left Kidney: No hydronephrosis or masses seen . No shadowing calculi. Bladder: wnl Bilateral Jets seen: Only left jet seen IMPRESSION: No hydronephrosis or shadowing calculi.
== END | disposition home or self-care (01) ==
LOC: RADUSWWP 14:53
PROVIDERS: ATTEND Urology
DX: N20.1 Calculus of ureter (principal)
CPT/HCPCS: 76770

== ENCOUNTER 2023-11-09 09:54 | Day surgery (SDC) | payer MEDICARE ==
[~2023-11-09 09:54] MED LIST changes: -LACTATED RINGERS 1,000 ML IV SCH; +LIDOCAINE 1% (10MG/ML) FOR IV START INTRADERMA PRN
[2023-11-09] MEDS: IV FLUID CONTINUATION 1,000 ML IV ONE (10:24)
[2023-11-09] MEDS: LACTATED RINGERS 1,000 ML IV SCH (10:40)
[2023-11-09 10:44] VITALS: TEMP 98.4
[2023-11-09] MEDS ORDERED: PROPOFOL 10 MG/ML 20 ML VIAL IV ONE (11:17)
[2023-11-09] MEDS ORDERED: LIDOCAINE 1% INJ 10MG/ML (20 ML MDV) ONE (11:17)
--- NOTE | 2023-11-09 11:35 | P.PCN ---
Date of Procedure: 11/09/23 Procedure(s) Performed: BRIEF HISTORY: Patient is a 68-year-old pleasant white man scheduled for an elective colonoscopy as a part of evaluation by history of colon polyps. PROCEDURE PERFORMED: Colonoscopy with snare polypectomy. PREOPERATIVE DIAGNOSIS: History of colon polyps. IV sedation per Anesthesia. PROCEDURE: After informed consent was obtained, the patient, was brought into the endoscopy unit. IV sedation was administered by Anesthesia under continuous monitoring. Digital rectal examination was normal. Initially the Olympus CF-160 flexible video colonoscope was then inserted in the rectum, gradually advanced into the cecum without any difficulty. Careful examination was performed as the scope was gradually being withdrawn. Ileocecal valve and the appendiceal orifice were visualized and appeared normal. Prep was excellent. Mucosa of the cecum, had 2 polyps measuring 2 mm in size removed by snare polypectomy. In the ascending colon there were total of 5 polyps measuring between 5 mm to 1 cm in size removed by snare polypectomy. Rest of the ascending colon, transverse colon, descending colon, were normal. The proximal sigmoid colon there was a 1 cm polyp to moisten polypectomy. In the sigmoid colon there were 4 polyps measuring 5 mm in size removed by snare polypectomy. Rest of the sigmoid colon, and rectum appeared normal. Retroflexion was performed in the rectum and no lesions were seen. The patient tolerated the procedure well. IMPRESSION: 2 small polyps in the cecum measuring 3 mm in size s/p cold snare polypectomy 5 polyps in the ascending colon measuring between 5 mm to 1 cm in size s/p polypectomy 5 polyps in the sigmoid colon, largest measuring 1 cm in size and that estimated between 3 to 5 mm s/p polypectomy Scattered sigmoid diverticulosis RECOMMENDATIONS: Findings of this examination were discussed with the patient as well as his family. He was advised to follow the biopsy results. If the biopsy was adenoma he can have repeat colonoscopy in 3 years..
[2023-11-09 11:53] VITALS: BP 105/64; PULSE 59; RESP 15
== END 2023-11-09 12:11 | disposition home or self-care (01) ==
LOC: ORWHC2ENDO 09:54
PROVIDERS: ATTEND Internal Medicine Gastroenterology
DX: Z12.11 Encounter for screening for malignant neoplasm of colon (principal); D12.0 Benign neoplasm of cecum; D12.2 Benign neoplasm of ascending colon; D12.5 Benign neoplasm of sigmoid colon; K57.30 Diverticulosis of large intestine without perforation or abscess without bleeding; I25.10 Atherosclerotic heart disease of native coronary artery without angina pectoris; E78.5 Hyperlipidemia, unspecified; N28.9 Disorder of kidney and ureter, unspecified; F32.A Depression, unspecified; K21.9 Gastro-esophageal reflux disease without esophagitis; Z88.0 Allergy status to penicillin; Z91.048 Other nonmedicinal substance allergy status; Z79.899 Other long term (current) drug therapy; Z86.010 Personal history of colon polyps
CPT/HCPCS: 88305; 45385; J2001; J2704